=== PATIENT | male | born 1995 | race Caucasian/White ===

== ENCOUNTER 2016-12-07 18:02 | Emergency (ER) | payer SELFPAY ==
[~2016-12-07 18:02] MED LIST: ETOMIDATE 20 MG/10 ML VIAL IV ONE; MIDAZOLAM 5 MG/5 ML VIAL IV ONE; SUCCINYLCHOLINE 20 MG/1 ML INJ 10 ML MDV IV ONE
[2016-12-07 18:21] VITALS: TEMP 98.4; BMI 25.1
[2016-12-07] MEDS ORDERED: Pharmacy Review for Metformin - IV Contrast Given SCH (19:00)
--- NOTE | 2016-12-07 19:13 | EDPRACDOC ---
<Kathleen Jurado Victoria - Last Filed: 12/07/16 22:33> - General Information Mode of Arrival: Car - History of Present Illness Onset: 0500 HPI: C/O progressive left side chest pain, exertional sob and weakness, episodes of syncope x 2 weeks. Med hx of HTN, prior PE (now off xarelto b/c he cant afford it). 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 Denies fever, cough, sore throat, N/V/D, chnages in urine or BM. Chest Pain Location: Reports: Left Chest Pain Radiation: Reports: None Symptoms Occur: Reports: Suddenly, With light exertion Cardiac Risk Factors: Reports: Smoker, Hypertension Cardiac History of: Reports: Valve Disease PE Risk Factors: Reports: Other (prior PE, now off xarelto, cant afford it) Medications within 24 Hours: Reports: None Prehospital Care: Reports: None Pain Came On: Reports: Suddenly Pain Status: Present Now Pain Description: Reports: Sharp Pain Severity: Moderate Pain Worsens With: Reports: Exertion, Movement Pain Improves With: Reports: Rest Associated Signs and Symptoms: Reports: SOB, Nausea <Reza Gómez - Last Filed: 12/08/16 05:50> - General Information Chief Complaint: Chest Pain Stated Complaint: OPEN HEART SURGERY [facility] CP Time Seen by Provider: 12/07/16 18:44 Home Medications: Home Medications Alprazolam [Xanax] 0.5 mg PO BID PRN 09/16/16 Bupropion HCl [Wellbutrin] 75 mg PO BID #60 tablet 09/18/16 Carvedilol 6.25 mg PO BID #60 tablet 09/18/16 HydrALAZINE (Cardiovascular) [Apresoline] 50 mg PO TID #90 tablet 09/18/16 Potassium Chloride [Klor-Con 10] 10 meq PO DAILY #30 tablet.sa 09/18/16 Torsemide 25 mg PO TID #90 tablet 09/18/16 Oxycodone HCl [Roxicodone] 5 mg PO Q8H PRN 12/07/16 Allergies/Adverse Reactions: Allergies Allergy/AdvReac Type Severity Reaction Status Date / Time No Known Allergies Allergy Verified 12/07/16 18:13 ED Past Medical History - History Reviewed Yes Nurses notes reviewed and agree except as marked - Patient Medical History Cardiac History: Reports: 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 Denies: Tonsillectomy/Adnoidectomy - Family Medical History Reports: Diabetes (Dad, PGF), Cardiac Disorders (Dad) - Social Medical History Smoking Status: Heavy tobacco smoker (5 or more cigarettes/day or daily pipe/ cigar) Social History: Reports: Substance Use Disorder (used IV drugs and smoker) <Reza Gómez - Last Filed: 12/08/16 05:50> EDM Review of Systems - Review of Systems ROS Negative Except as Marked: Yes All systems reviewed and were negative except as marked Respiratory: Shortness of Breath Cardiovascular: Chest Pain, Syncope Neurological: Dizziness, Weakness <Reza Gómez - Last Filed: 12/08/16 05:50> - Physical Exam Last recorded Vital Signs: Last Vital Signs Temp 98.4 F 12/07/16 18:13 Pulse 116 12/07/16 19:52 Resp 18 12/07/16 19:52 BP 130/80 12/07/16 19:52 Pulse Ox 92 12/07/16 19:52 Oxygen Pulse Oxygen Saturation 92 O2 Device Venturi Mask Oxygen Flow Rate Fraction of Inspired Oxygen ( 55 FIO2) <Kathleen Jurado - Last Filed: 12/07/16 22:33> - Physical Exam Constitutional: Alert, Distress (respiratory) Oriented to: Time, Person Last recorded Vital Signs: Last Vital Signs Temp 98.4 F 12/07/16 18:13 Pulse 104 12/07/16 18:13 Resp 22 12/07/16 18:13 BP 129/76 12/07/16 18:13 Pulse Ox 96 12/07/16 18:13 Oxygen Pulse Oxygen Saturation 96 O2 Device Oxygen Flow Rate Fraction of Inspired Oxygen ( FIO2) - HEENT Head: Normal Eye Exam: negative: Conjunctival Injection, Scleral Icterus Oropharynx: negative: Drooling TMJ: Normal Nose: No Symptoms Reported Neck: Normal - Respiratory/Cardiovascular Respiratory: Normal - CTA Cardiovascular: Normal - GI Tenderness: Non tender - Musculoskeletal Back: Normal Extremities: Normal - Integumentary Skin: Normal - Neurologic Mood Description: Anxious Thought: Coherent Perception: Normal <Reza Gómez - Last Filed: 12/08/16 05:50> ED Chest Pain Exam - Respiratory/Cardiovascular Respiratory: Normal - CTA Cardiovascular/Chest: Normal Radial Pulse: Normal Pedal Pulse: Normal Edema: negative: 1+, 2+, 3+, 4+, 5, 6 Chest Palpation: Normal <Reza Gómez - Last Filed: 12/08/16 05:50> ED Procedures - Central Line Informed of risks, benefits and alternatives described.: Yes Central Line Informed Consent Signed: Verbal Indication: Medication Administration, No peripheral access Line Procedure: Chlorahexadine, Sterile drapes applied, Sterile dressing applied Equipment used during procedure: Hat and Mask, Sterile Gown, Sterile Gloves Line Lumen: triple Central Line Postion: femoral (R) Anesthesia: Lidocaine cc's of anesthesia: 2 Line Position approached and secured by standard fashion: sutured, good blood return - Intubation Informed of risks, benefits and alternatives described.: Yes Informed Consent Signed: Verbal Indication: Respiratory Insufficiency, Airway Protection Intubation Date: 12/07/16 Pre-oxygenation completed: Yes Number of Attempts: 1 Storcz Used: No (GLIDESCOPE) Intubation Method: Oral Endotracheal Utilized: Mac3 Blade Tube Size (cm): 7.5 Position at Lip: 22 ETCO2 Detector Positive: Yes Breath Sounds after Intubation: equal Medications: Succinylcholine Intubation Complications: no complications Post Intubation Procedure CXR ordered?: Yes <Kathleen Jurado - Last Filed: 12/07/16 22:33> - Results 12/07/16 19:30 12/07/16 19:30 WBC 11.2 xk/uL (3.8-10.8) H 12/07/16 19:30 RBC 6.53 xM/uL (4.70-6.10) H 12/07/16 19:30 Hgb 21.3 g/dL (14.0-18.0) H 12/07/16 19:30 Hct 62.7 % (42-52) H 12/07/16 19:30 MCV 96 fL (80-94) H 12/07/16 19:30 MCH 32.7 pg (27-32) H 12/07/16 19:30 MCHC 34.1 g/dl (33-36) 12/07/16 19:30 RDW 14.1 % (11.5-14.5) 12/07/16 19:30 Plt Count 210 xk/uL (130-400) 12/07/16 19:30 MPV 7.5 fL (7.4-10.4) 12/07/16 19:30 Neut % (Auto) 69.5 % (45-76) 12/07/16 19:30 Lymph % (Auto) 23.7 % (17-44) 12/07/16 19:30 Dickson % (Auto) 5.5 % (3-10) 12/07/16 19:30 Eos % (Auto) 0.6 % (0-5) 12/07/16:30 Baso % (Auto) 0.7 % (0-2) 12/07/16 19:30 Absolute Neuts (auto) 7.73 xk/uL (1.7-8.2) 12/07/16 19:30 Absolute Lymphs (auto) 2.58 xk/uL (0.65-4.75) 12/07/16 19:30 PT 11.6 SEC (9.2-11.2) H 12/07/16 19:30 INR 1.1 12/07/16 19:30 APTT 24.0 SEC (22-35) 12/07/16 19:30 Puncture Site Left radial 12/07/16 19:15 pH 7.510 pH UNITS (7.35-7.45) H 12/07/16 19:15 pCO2 25.0 mmHg (35-45) L 12/07/16: pO2 37.0 mmHg (80-100) L* 12/07/16 19: HCO3 19.9 MMOL/L (22-26) L 12/07/16:15 Total CO2 20.7 MMOL/L (23-27) L 12/07/16: Base Excess -1.5 (+/- 2) 12/07/16 19: FiO2 % 21% 12/07/16 19:15 Specimen Drawn By Luna 12/07/16 19:15 Sodium 143 mEq/L (137-146) 12/07/16 19:30 Potassium 4.7 mEq/L (3.5-5.1) 12/07/16 19:30 Chloride 98 mEq/L (98-107) 12/07/16 19:30 Carbon Dioxide 23 mMOL/L (22-33) 12/07/16 19:30 Anion Gap 27 mEq/L (8-16) H 12/07/16 19:30 BUN 24 MG/DL (9-20) H 12/07/16 19:30 Creatinine 2.30 MG/DL (0.66-1.25) H 12/07/16 19:30 Estimated GFR (MDRD) 35 mL/min (>=60) L 12/07/16 19:30 Glucose 110 MG/DL (70-99) H 12/07/16 19:30 Calculated Osmolality 280 MOs/Kg (270-290) 12/07/16 19:30 Lactic Acid 1.6 mEq/L (0.7-2.1) 12/07/16 19:30 Calcium 10.8 MG/DL (8.4-10.2) H 12/07/16 19:30 Total Bilirubin 1.0 MG/DL (0.2-1.3) 12/07/16 19:30 AST 30 IU/L (17-59) 12/07/16 19:30 ALT 23 IU/L (21-72) 12/07/16 19:30 Alkaline Phosphatase 127 IU/L (38-126) H 12/07/16 19:30 Troponin I < 0.01 ng/mL (<.04) 12/07/16 19:30 Vsd-[id number]-Mqxtytvwpnb Pept 470 pg/mL (0-450) H 12/07/16 19:30 Total Protein 10.9 G/DL (6.3-8.2) H 12/07/16 19:30 Albumin 5.0 G/DL (3.5-5.0) 12/07/16 19:30 Urine Color Yellow 12/07/16 20:00 Urine Clarity Clear 12/07/16 20:00 Urine pH 5.0 (5.0-8.0) 12/07/16 20:00 Ur Specific [place] 1.010 (1.003-1.035) 12/07/16 20:00 Urine Protein 1+ (NEG/TRACE) H 12/07/16 20:00 Urine Glucose (UA) Neg (NEGATIVE) 12/07/16 20:00 Urine Ketones Neg (NEGATIVE) 01/15/17 20:00 Urine Occult Blood 1+ (NEG/TRACE) H 12/07/16 20:00 Urine Nitrite Neg (NEGATIVE) 12/07/16 20:00 Urine Bilirubin Neg (NEGATIVE) 12/07/16 20:00 Urine Urobilinogen 0.2 MG/DL (0-1) 12/07/16 20:00 Ur Leukocyte Esterase Neg (NEGATIVE) 12/07/16 20:00 Urine RBC 5-10 (0-2) H 12/07/16 20:00 Urine WBC 0-2 (0-2) 12/07/16 20:00 Ur Epithelial Cells Occ 12/07/16 20:00 Hyaline Casts 10-20 (0-2) H 12/07/16 20:00 Urine Mucus Occ (NEG/OCC) 12/07/16 20:00 Urine Sperm Occ (NONE) H 12/07/16 20:00 Urine Opiates Screen Neg (NEGATIVE) 12/07/16 20:00 Ur Oxycodone Screen Neg (NEGATIVE) 12/07/16 20:00 Urine Methadone Screen Neg (NEGATIVE) 12/07/16 20:00 Ur Barbiturates Screen Neg (NEGATIVE) 12/07/16 20:00 Ur Tricyclics Screen Neg (NEGATIVE) 12/07/16 20:00 Ur Phencyclidine Scrn Neg (NEGATIVE) 12/07/16 20:00 Ur Amphetamines Screen Neg (NEGATIVE) 12/07/16 20:00 U Methamphetamines Scrn Neg (NEGATIVE) 12/07/16 20:00 Urine MDMA Screen Neg (NEGATIVE) 12/07/16 20:00 U Benzodiazepines Scrn Neg (NEGATIVE) 12/07/16 20:00 Urine Cocaine Screen Neg (NEGATIVE) 12/07/16 20:00 Ur THC Screen Neg (NEGATIVE) 12/07/16 20:00 Lab Results 12/07/16 12/07/16 12/07/16 20:00 20:00 19:30 WBC RBC Hgb Hct MCV MCH MCHC RDW Plt Count MPV Neut % (Auto) Lymph % (Auto) Dickson % (Auto) Eos % (Auto) Baso % (Auto) Absolute Neuts (auto) Absolute Lymphs (auto) PT INR APTT Puncture Site pH pCO2 pO2 HCO3 Total CO2 Base Excess FiO2 % Specimen Drawn By Sodium Potassium Chloride Carbon Dioxide Anion Gap BUN Creatinine Estimated GFR (MDRD) Glucose Calculated Osmolality Lactic Acid 1.6 Calcium Total Bilirubin AST ALT Alkaline Phosphatase Troponin I Rha-Y-Becpjjtttuy Pept Total Protein Albumin Urine Color Yellow Urine Clarity Clear Urine pH 5.0 Ur Specific [place] 1.010 Urine Protein 1+ H Urine Glucose (UA) Neg Urine Ketones Neg Urine Occult Blood 1+ H Urine Nitrite Neg Urine Bilirubin Neg Urine Urobilinogen 0.2 Ur Leukocyte Esterase Neg Urine RBC 5-10 H Urine WBC 0-2 Ur Epithelial Cells Occ Hyaline Casts 10-20 H Urine Mucus Occ Urine Sperm Occ H Urine Opiates Screen Neg Ur Oxycodone Screen Neg Urine Methadone Screen Neg Ur Barbiturates Screen Neg Ur Tricyclics Screen Neg Ur Phencyclidine Scrn Neg Ur Amphetamines Screen Neg U Methamphetamines Scrn Neg Urine MDMA Screen Neg U Benzodiazepines Scrn Neg Urine Cocaine Screen Neg Ur THC Screen Neg 12/07/16 12/07/16 12/07/16 19:30 19:30 19:30 WBC 11.2 H RBC 6.53 H Hgb 21.3 H Hct 62.7 H MCV 96 H MCH 32.7 H MCHC 34.1 RDW 14.1 Plt Count 210 MPV 7.5 Neut % (Auto) 69.5 Lymph % (Auto) 23.7 Dickson % (Auto) 5.5 Eos % (Auto) 0.6 Baso % (Auto) 0.7 Absolute Neuts (auto) 7.73 Absolute Lymphs (auto) 2.58 PT 11.6 H INR 1.1 APTT 24.0 Puncture Site pH pCO2 pO2 HCO3 Total CO2 Base Excess FiO2 % Specimen Drawn By Sodium 143 Potassium 4.7 Chloride 98 Carbon Dioxide 23 Anion Gap 27 H BUN 24 H Creatinine 2.30 H Estimated GFR (MDRD) 35 L Glucose 110 H Calculated Osmolality 280 Lactic Acid Calcium 10.8 H Total Bilirubin 1.0 AST 30 ALT 23 Alkaline Phosphatase 127 H Troponin I < 0.01 Haj-X-Vifqsltaezf Pept 470 H Total Protein 10.9 H Albumin 5.0 Urine Color Urine Clarity Urine pH Ur Specific [place] Urine Protein Urine Glucose (UA) Urine Ketones Urine Occult Blood Urine Nitrite Urine Bilirubin Urine Urobilinogen Ur Leukocyte Esterase Urine RBC Urine WBC Ur Epithelial Cells Hyaline Casts Urine Mucus Urine Sperm Urine Opiates Screen Ur Oxycodone Screen Urine Methadone Screen Ur Barbiturates Screen Ur Tricyclics Screen Ur Phencyclidine Scrn Ur Amphetamines Screen U Methamphetamines Scrn Urine MDMA Screen U Benzodiazepines Scrn Urine Cocaine Screen Ur THC Screen 12/07/16 19:15 WBC RBC Hgb Hct MCV MCH MCHC RDW Plt Count MPV Neut % (Auto) Lymph % (Auto) Dickson % (Auto) Eos % (Auto) Baso % (Auto) Absolute Neuts (auto) Absolute Lymphs (auto) PT INR APTT Puncture Site Left radial pH 7.510 H pCO2 25.0 L pO2 37.0 L* HCO3 19.9 L Total CO2 20.7 L Base Excess -1.5 FiO2 % 21% Specimen Drawn By Whitr Sodium Potassium Chloride Carbon Dioxide Anion Gap BUN Creatinine Estimated GFR (MDRD) Glucose Calculated Osmolality Lactic Acid Calcium Total Bilirubin AST ALT Alkaline Phosphatase Troponin I Kid-G-Uzbgnbtiziw Pept Total Protein Albumin Urine Color Urine Clarity Urine pH Ur Specific [place] Urine Protein Urine Glucose (UA) Urine Ketones Urine Occult Blood Urine Nitrite Urine Bilirubin Urine Urobilinogen Ur Leukocyte Esterase Urine RBC Urine WBC Ur Epithelial Cells Hyaline Casts Urine Mucus Urine Sperm Urine Opiates Screen Ur Oxycodone Screen Urine Methadone Screen Ur Barbiturates Screen Ur Tricyclics Screen Ur Phencyclidine Scrn Ur Amphetamines Screen U Methamphetamines Scrn Urine MDMA Screen U Benzodiazepines Scrn Urine Cocaine Screen Ur THC Screen Laboratory Results - last 24 hr 12/07/16 12/07/16 12/07/16 19:15 19:30 19:30 WBC 11.2 H RBC 6.53 H Hgb 21.3 H Hct 62.7 H MCV 96 H MCH 32.7 H MCHC 34.1 RDW 14.1 Plt Count 210 MPV 7.5 Neut % (Auto) 69.5 Lymph % (Auto) 23.7 Dickson % (Auto) 5.5 Eos % (Auto) 0.6 Baso % (Auto) 0.7 Absolute Neuts (auto) 7.73 Absolute Lymphs (auto) 2.58 PT INR APTT Puncture Site Left radial pH 7.510 H pCO2 25.0 L pO2 37.0 L* HCO3 19.9 L Total CO2 20.7 L Base Excess -1.5 FiO2 % 21% Specimen Drawn By Whitr Sodium 143 Potassium 4.7 Chloride 98 Carbon Dioxide 23 Anion Gap 27 H BUN 24 H Creatinine 2.30 H Estimated GFR (MDRD) 35 L Glucose 110 H Calculated Osmolality 280 Lactic Acid Calcium 10.8 H Total Bilirubin 1.0 AST 30 ALT 23 Alkaline Phosphatase 127 H Troponin I < 0.01 Csr-N-Vnukbcyzqlj Pept 470 H Total Protein 10.9 H Albumin 5.0 Urine Color Urine Clarity Urine pH Ur Specific [place] Urine Protein Urine Glucose (UA) Urine Ketones Urine Occult Blood Urine Nitrite Urine Bilirubin Urine Urobilinogen Ur Leukocyte Esterase Urine RBC Urine WBC Ur Epithelial Cells Hyaline Casts Urine Mucus Urine Sperm Urine Opiates Screen Ur Oxycodone Screen Urine Methadone Screen Ur Barbiturates Screen Ur Tricyclics Screen Ur Phencyclidine Scrn Ur Amphetamines Screen U Methamphetamines Scrn Urine MDMA Screen U Benzodiazepines Scrn Urine Cocaine Screen Ur THC Screen 12/07/16 12/07/16 12/07/16 19:30 19:30 20:00 WBC RBC Hgb Hct MCV MCH MCHC RDW Plt Count MPV Neut % (Auto) Lymph % (Auto) Dickson % (Auto) Eos % (Auto) Baso % (Auto) Absolute Neuts (auto) Absolute Lymphs (auto) PT 11.6 H INR 1.1 APTT 24.0 Puncture Site pH pCO2 pO2 HCO3 Total CO2 Base Excess FiO2 % Specimen Drawn By Sodium Potassium Chloride Carbon Dioxide Anion Gap BUN Creatinine Estimated GFR (MDRD) Glucose Calculated Osmolality Lactic Acid 1.6 Calcium Total Bilirubin AST ALT Alkaline Phosphatase Troponin I Odm-I-Ewwihkjnyvm Pept Total Protein Albumin Urine Color Urine Clarity Urine pH Ur Specific [place] Urine Protein Urine Glucose (UA) Urine Ketones Urine Occult Blood Urine Nitrite Urine Bilirubin Urine Urobilinogen Ur Leukocyte Esterase Urine RBC Urine WBC Ur Epithelial Cells Hyaline Casts Urine Mucus Urine Sperm Urine Opiates Screen Neg Ur Oxycodone Screen Neg Urine Methadone Screen Neg Ur Barbiturates Screen Neg Ur Tricyclics Screen Neg Ur Phencyclidine Scrn Neg Ur Amphetamines Screen Neg U Methamphetamines Scrn Neg Urine MDMA Screen Neg U Benzodiazepines Scrn Neg Urine Cocaine Screen Neg Ur THC Screen Neg 12/07/16 20:00 WBC RBC Hgb Hct MCV MCH MCHC RDW Plt Count MPV Neut % (Auto) Lymph % (Auto) Dickson % (Auto) Eos % (Auto) Baso % (Auto) Absolute Neuts (auto) Absolute Lymphs (auto) PT INR APTT Puncture Site pH pCO2 pO2 HCO3 Total CO2 Base Excess FiO2 % Specimen Drawn By Sodium Potassium Chloride Carbon Dioxide Anion Gap BUN Creatinine Estimated GFR (MDRD) Glucose Calculated Osmolality Lactic Acid Calcium Total Bilirubin AST ALT Alkaline Phosphatase Troponin I Vbt-O-Rhkeewgafla Pept Total Protein Albumin Urine Color Yellow Urine Clarity Clear Urine pH 5.0 Ur Specific [place] 1.010 Urine Protein 1+ H Urine Glucose (UA) Neg Urine Ketones Neg Urine Occult Blood 1+ H Urine Nitrite Neg Urine Bilirubin Neg Urine Urobilinogen 0.2 Ur Leukocyte Esterase Neg Urine RBC 5-10 H Urine WBC 0-2 Ur Epithelial Cells Occ Hyaline Casts 10-20 H Urine Mucus Occ Urine Sperm Occ H Urine Opiates Screen Ur Oxycodone Screen Urine Methadone Screen Ur Barbiturates Screen Ur Tricyclics Screen Ur Phencyclidine Scrn Ur Amphetamines Screen U Methamphetamines Scrn Urine MDMA Screen U Benzodiazepines Scrn Urine Cocaine Screen Ur THC Screen Laboratory Results 12/07/16 19:30 12/07/16 19:30 - Additional Information PT D/W DR. CAREY WHO SPOKE WITH OUR [employer]ER DR. TREJO. BOTH FEEL THAT PT NEEDS TO GO BACK TO [facility] (WHERE HE HAD HIS TRICUSPID VALVE SURGERY). PT D/W DR. GORE ([facility]) WHO WOULD ACCEPT HIM, BUT THEY DON'T HAVE ANY BEDS. PT D/W DR. ROD (ICU ATTENDING AT [facility]) AND DR. BROTHERS (FELLOW) WHO ACCEPTED PT FOR TRANSFER. <Kathleen Jurado - Last Filed: 12/07/16 22:33> - Action Patient received Aspirin within last 24 hours?: Yes ASA given in the ED: No - Results 12/07/16 19:30 12/07/16 19:30 - EKG EKG #1 EKG Time: 18:08 -: Yes EKG interpreted by wa Rate: bpm: 116 Rhythm: ST Block: RBBB ST: Nonsp Comparison: 09/16/16 (no sig chnage) - Diagnostic Imaging Chest Image interpreted by: Radiologist EXAM: CT ANGIOGRAPHY CHEST WITH CONTRAST TECHNIQUE: Multidetector CT imaging of the chest was performed using the standard protocol during bolus administration of intravenous contrast. Multiplanar CT image reconstructions and MIPs were obtained to evaluate the vascular anatomy. CONTRAST: 100 cc Isovue 370 IV. COMPARISON: 07/05/[address] FINDINGS: Mediastinum/Nodes: The study is high quality for the evaluation of pulmonary embolism. There are no filling defects in the central, lobar, segmental or subsegmental pulmonary artery branches to suggest acute pulmonary embolism. Great vessels are normal in course and caliber. Normal heart size. Tricuspid valve prosthesis is in place. No pericardial fluid/thickening. There is reflux of contrast into the hepatic veins. Normal visualized thyroid. Normal esophagus. No pathologically enlarged axillary, mediastinal or hilar lymph nodes. Lungs/Pleura: No pneumothorax. No pleural effusion. A tiny portion of the inferior lower lobes is excluded from the study. The previously described cavitary nodules throughout both lungs on the 07/05/[address] study have resolved. There is scattered minimal scarring in both lungs at the sites of the cavitary nodules from the prior chest CT, most prominent in the left upper lobe (series 4/image 48). No acute consolidative airspace disease, significant solid pulmonary nodules or lung masses. There is mild patchy tree-in-bud opacity in the right upper lobe. Upper abdomen: Unremarkable. Musculoskeletal: No aggressive appearing focal osseous lesions. Median sternotomy wires are aligned and intact. Review of the MIP images confirms the above findings. IMPRESSION: 1. No evidence of acute pulmonary embolism. 2. Reflux of contrast into the hepatic veins, suggesting tricuspid regurgitation and/or right heart failure. Recommend correlation with echocardiography. 3. Interval resolution of previously described cavitary nodules. 4. Mild patchy tree-in-bud opacity in the right upper lobe, suggesting a mild infectious or inflammatory bronchiolitis. Electronically Signed By: Anthony Damon M.D. On: 12/07/2016 20:19 <Reza Gómez - Last Filed: 12/08/16 05:50> ED Critical Care Note - Critical Care Note Total Time (mins): 120 <Kathleen Jurado - Last Filed: 12/07/16 22:33> - Departure Yes I personally saw and evaluated the patient. Disposition: Trans. 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
[2016-12-07 19:24] LABS: ALLEN'S TEST PASS; BEb -1.5 (+/- 2); TCO2 20.7 MMOL/L (23-27)
[2016-12-07 19:29] LABS: ABG Draw Site Left Radial
[2016-12-07 19:39] LABS: AUTOMATED BASOPHIL 0.7 % (0-2); AUTOMATED EOSINOPHIL 0.6 % (0-5); AUTOMATED LYMPH 23.7 % (17-44); AUTOMATED MONOCYTE 5.5 % (3-10); AUTOMATED NEUTROPHIL 69.5 % (45-76); MPV 7.5 fL (7.4-10.4)
[2016-12-07 19:49] LABS: BLOOD UREA NITROGEN 24 MG/DL (9-20); CALCIUM 10.8 MG/DL (8.4-10.2); CALCULATED OSMOLALITY 280 MOs/Kg (270-290); CHLORIDE 98 mEq/L (98-107); GLUCOSE 110 MG/DL (70-99); SODIUM LEVEL 143 mEq/L (137-146); TOTAL PROTEIN 10.9 G/DL (6.3-8.2)
[2016-12-07] MEDS ORDERED: NS 1,000 ML IV ONE ×2 (19:54→22:45)
[2016-12-07 20:14] LABS: ALL NEG? YES; MDMA* NEG (NEGATIVE); METHAMPHETAMINES NEG (NEGATIVE); OXYCODONE NEG (NEGATIVE); WBC/URINE 0-2 (0-2)
[2016-12-07 20:15] LABS: LEUKOCYTES/URINE NEG (NEGATIVE); NITRITE/URINE NEG (NEGATIVE); URINE OCCULT BLOOD 1+ (NEG/TRACE)
[2016-12-07 20:16] LABS: PT-INR 1.1
--- NOTE | 2016-12-07 20:22 | DIRPT ---
CLINICAL DATA: Shortness of breath. History of pulmonary embolism. Not currently anticoagulated for 1 month. Tricuspid valve replacement in June 2016 due to endocarditis. EXAM: CT ANGIOGRAPHY CHEST WITH CONTRAST TECHNIQUE: Multidetector CT imaging of the chest was performed using the standard protocol during bolus administration of intravenous contrast. Multiplanar CT image reconstructions and MIPs were obtained to evaluate the vascular anatomy. CONTRAST: 100 cc Isovue 370 IV. COMPARISON: 07/05/[address] FINDINGS: Mediastinum/Nodes: The study is high quality for the evaluation of pulmonary embolism. There are no filling defects in the central, lobar, segmental or subsegmental pulmonary artery branches to suggest acute pulmonary embolism. Great vessels are normal in course and caliber. Normal heart size. Tricuspid valve prosthesis is in place. No pericardial fluid/thickening. There is reflux of contrast into the hepatic veins. Normal visualized thyroid. Normal esophagus. No pathologically enlarged axillary, mediastinal or hilar lymph nodes. Lungs/Pleura: No pneumothorax. No pleural effusion. A tiny portion of the inferior lower lobes is excluded from the study. The previously described cavitary nodules throughout both lungs on the 07/05/[address] study have resolved. There is scattered minimal scarring in both lungs at the sites of the cavitary nodules from the prior chest CT, most prominent in the left upper lobe (series 4/image 48). No acute consolidative airspace disease, significant solid pulmonary nodules or lung masses. There is mild patchy tree-in-bud opacity in the right upper lobe. Upper abdomen: Unremarkable. Musculoskeletal: No aggressive appearing focal osseous lesions. Median sternotomy wires are aligned and intact. Review of the MIP images confirms the above findings. IMPRESSION: 1. No evidence of acute pulmonary embolism. 2. Reflux of contrast into the hepatic veins, suggesting tricuspid regurgitation and/or right heart failure. Recommend correlation with echocardiography. 3. Interval resolution of previously described cavitary nodules. 4. Mild patchy tree-in-bud opacity in the right upper lobe, suggesting a mild infectious or inflammatory bronchiolitis. Electronically Signed By: Anthony Damon M.D. On: 12/07/2016 20:19
[2016-12-07] MEDS ORDERED: Levofloxacin 750 mg/150 ml D5W 750 MG/150 ML RTU IV ONE (20:47)
--- NOTE | 2016-12-07 21:02 | DIRPT ---
CLINICAL DATA: Acute onset of shortness of breath and generalized chest pain. Initial encounter. EXAM: PORTABLE CHEST 1 VIEW COMPARISON: Chest radiograph performed 10/13/2016, and CTA of the chest performed earlier today at 7:43 p.m. FINDINGS: The lungs are well-aerated. Minimal tree-in-bud opacity noted on CTA, at the right upper lobe, is too small to characterize on radiograph. There is no evidence of pleural effusion or pneumothorax. The cardiomediastinal silhouette is within normal limits. The patient is status post median sternotomy. A tricuspid valve replacement is noted. Pacemaker leads are noted. No acute osseous abnormalities are seen. IMPRESSION: Minimal tree-in-bud opacity noted on recent CTA, at the right upper lobe, is too small to characterize on radiograph. Lungs otherwise clear. Electronically Signed By: Emery Palacios M.D. On: 12/07/2016 21:00
[2016-12-07 21:33] LABS: ALLEN'S TEST PASS; BEb -3.8 (+/- 2)
[2016-12-07 21:45] LABS: ABG Draw Site Left Brachial
[2016-12-07] MEDS ORDERED: ETOMIDATE 20 MG/10 ML VIAL IV ONE (21:48)
[2016-12-07] MEDS ORDERED: SUCCINYLCHOLINE 20 MG/ML INJ 10 ML VIAL IV ONE (21:48)
[2016-12-07] MEDS ORDERED: MIDAZOLAM 5 MG/5 ML VIAL ONE (22:19)
[2016-12-07] MEDS ORDERED: MIDAZOLAM 5 MG/5 ML VIAL IV ONE (22:22)
[2016-12-07] MEDS ORDERED: FENTANYL 2,500 MCG/250 ML BAG IV SCH (23:00)
[2016-12-07 23:27] LABS: ALLEN'S TEST PASS; BEb -2.6 (+/- 2); TCO2 22.9 MMOL/L (23-27)
[2016-12-07 23:28] LABS: ABG Draw Site Left Radial; MODE AC-16 RATE; PO2 < 31.0 mmHg (80-100)
[2016-12-07 23:48] VITALS: BP 117/57; PULSE 113
--- NOTE | 2016-12-08 | DIRPT ---
CLINICAL DATA: Life support line placement. EXAM: PORTABLE CHEST 1 VIEW COMPARISON: Chest radiograph December 07, 2016 at 2024 hours FINDINGS: Interval intubation, distal tip projects 4.1 cm above the april. Nasogastric tube side port projects in proximal stomach, distal tip not imaged. Cardiomediastinal silhouette is normal, status post median sternotomy for cardiac valve replacement. Lungs are clear. No pneumothorax. Soft tissue planes and included osseous structures are normal. Multiple pacer leads project in LEFT chest. IMPRESSION: Interval intubation, distal tip projects 4.1 cm above the april. Nasogastric tube side port projects in proximal stomach, distal tip not imaged. No acute cardiopulmonary process. Electronically Signed By: Dominick Nichols M.D. On: 12/07/2016 23:58
== END 2016-12-07 23:12 | disposition short-term general hospital (02) ==
LOC: ED 18:02
DX: D75.1 Secondary polycythemia (principal); I07.1 Rheumatic tricuspid insufficiency; N17.9 Acute kidney failure, unspecified; Z91.14 Patient's other noncompliance with medication regimen; J18.9 Pneumonia, unspecified organism; J96.00 Acute respiratory failure, unspecified whether with hypoxia or hypercapnia
CPT/HCPCS: 31500; 36556; 36600; 71010; 71275; 80053; 80307; 81001; 82803; 83605; 83880; 84484; 85025; 85610; 85730; 87040; 93005; 96361; 96365; 96366; 96375; 96376; 99291; 99292; A9698; J0330; J1956; J2250; J3490; 99285

== ENCOUNTER 2016-12-24 20:11 | Emergency (ER) | payer MEDICAID ==
[2016-12-24 20:12] VITALS: BMI 25.1
[2016-12-24 20:35] VITALS: TEMP 98
--- NOTE | 2016-12-24 21:08 | EDPRACDOC ---
- General Information Chief Complaint: Chest Pain Stated Complaint: CP SHOB HX OPEN HEART SURGERY PALE Time Seen by Provider: 12/24/16 20:31 Information Source: Patient Mode of Arrival: Car Home Medications: Home Medications Alprazolam [Xanax] 0.5 mg PO BID PRN 09/16/16 Bupropion HCl [Wellbutrin] 75 mg PO BID #60 tablet 09/18/16 Carvedilol 6.25 mg PO BID #60 tablet 09/18/16 HydrALAZINE (Cardiovascular) [Apresoline] 50 mg PO TID #90 tablet 09/18/16 Potassium Chloride [Klor-Con 10] 10 meq PO DAILY #30 tablet.sa 09/18/16 Torsemide 25 mg PO TID #90 tablet 09/18/16 Oxycodone HCl [Roxicodone] 5 mg PO Q8H PRN 12/07/16 Aspirin [Adult Low Dose Aspirin EC] 81 mg PO DAILY #30 tablet. 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 HE HAD A HX OF A TRICUSPID VALVE REPLACEMENT AT [facility] AND HAD NOT BEEN DOING WELL SINCE THEN. WHEN I SAW HIM, HIS O2 SATS WERE VERY LOW AND HIS HGB WAS VERY HIGH. I SUSPECTED HE HAD A RIGHT TO LEFT SHUNT. HE WAS INTUBATED AND TRANSFERRED TO [facility]. PT HAS BEEN THERE SINCE THEN AND LEFT AMA TODAY. PT SAID THAT DR. ARCE (DOCTOR TAKING CARE OF HIM THERE ) CALLED HIS BROTHER AND ASKED THE BROTHER TO BRING PT BACK. PT COMES IN TODAY TO GET HIS MEDS. PT SAID THAT HE DOES NOT WANT TO BE ADMITTED OR GO BACK TO [facility]. HE ONLY WANTS HIS RX. 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 Denies: Tonsillectomy/Adnoidectomy - Family Medical History Reports: Diabetes (Dad, PGF), Cardiac Disorders (Dad) - Social Medical History Smoking Status: Heavy tobacco smoker (5 or more cigarettes/day or daily pipe/ cigar) Social History: Reports: Substance Use Disorder (used IV drugs and smoker) Substance Abuse: Illicit Drugs Lives In: Home EDM Review of Systems - Review of Systems ROS Negative Except as Marked: Yes All systems reviewed and were negative except as marked - Physical Exam Constitutional: Alert (Awake), No apparent distress Oriented to: Time, Person, Place Last recorded Vital Signs: Last Vital Signs Temp 98.0 F 12/24/16 20:15 Pulse 105 12/24/16 20:15 Resp 20 12/24/16 20:15 BP 134/94 12/24/16 20:15 Pulse Ox 98 12/24/16 20:15 Oxygen Pulse Oxygen Saturation 98 O2 Device Room Air Oxygen Flow Rate Fraction of Inspired Oxygen ( FIO2) - HEENT Head: Normal ( normocephalic) Eye Exam: Normal (PERRL, EOMI, Sclera white) Oropharynx: Normal (Pharynx:Moist without exudate,Gums-no swelling) ENT EAC: Normal TMJ: Normal Nose: No Symptoms Reported (septum midline) Neck: Normal (FROM, trachea at midline) - Respiratory/Cardiovascular Respiratory: Normal - CTA (BBS clear to auscultation without adventitious sounds ) Cardiovascular: Tachycardia, Systolic murmur - GI Auscultation: Normal (NABS) Palpation: Normal (Soft,No rebound or guarding, non distended) Tenderness: Non tender Oseguera's Sign: Negative - Musculoskeletal Back: Normal (Non-Tender) Extremities: Normal (Normal tone, Pulses 2+ No cyanosis or edema, FROM) - Integumentary Skin: Normal, Warm, Dry Lymphatics: Normal (no adenopathy) - Neurologic Memory Impaired: Normal Motor Function: Normal (Normal tone, Pulses 2+ No cyanosis or edema, FROM) Cranial Nerve: Normal (CN II-X11 intact sensation, strength 5/5) Cerebellar: Normal Mood Description: Normal Perception: Normal - Additional Information PT D/W DR. SPARKS (DOUGHMAKER FOR DR. ARCE). HE GAVE ME A LIST OF MEDS PT WAS TAKING. HE SAID THAT PSYCH SAW HIM FOR DELIRIUM AND REC STARTING SEROQUEL, BUT THAT WAS NEVER STARTED. PT DOES NOT HAVE SIGNS OF DELIRIUM NOW. Decision Time to Discharge: 21:10 - Departure Yes I personally saw and evaluated the patient. Disposition: Home Condition: Fair Final Diagnosis: S/P patent foramen ovale closure Instructions: Chest Pain (ED), Heart Healthy Diet (ED) Education/Counseling Given To: Patient Education/Counseling Given Regarding: Diagnosis, Treatment, Follow Up Referrals: None,No Provider [Primary Care Provider] - One Week Prescriptions: New Aspirin [Adult Low Dose Aspirin EC] 81 mg PO DAILY #30 tablet. Carvedilol [Coreg] 3.125 mg PO BID #60 tab Quetiapine Fumarate [Seroquel] 50 mg PO DAILY #30 tab Warfarin Sodium [Coumadin] 5 mg PO DAILY #30 tab No Action Alprazolam [Xanax] 0.5 mg PO BID PRN PRN Reason: Anxiety Bupropion HCl [Wellbutrin] 75 mg PO BID #60 tablet Carvedilol 6.25 mg PO BID #60 tablet HydrALAZINE (Cardiovascular) [Apresoline] 50 mg PO TID #90 tablet Potassium Chloride [Klor-Con 10] 10 meq PO DAILY #30 tablet.sa Torsemide 25 mg PO TID #90 tablet Oxycodone HCl [Roxicodone] 5 mg PO Q8H PRN PRN Reason: Pain Additional Instructions: F/U W/ DR. ARCE AT [facility].
[2016-12-24 21:36] VITALS: BP 123/88; PULSE 94
== END 2016-12-24 21:32 | disposition home or self-care (01) ==
LOC: ED 20:11
DX: R07.9 Chest pain, unspecified (principal); R06.02 Shortness of breath; Z98.890 Other specified postprocedural states
CPT/HCPCS: 99284